=== PATIENT | male | born 1965 | race Caucasian/White ===

== ENCOUNTER 2020-03-15 10:31 | Inpatient (IN) | payer BC, OTHER ==
[2020-03-15] VITALS (15 sets, daily range): BP systolic 107–155; BP diastolic 60–95
[~2020-03-15] VITALS: Ht 172.7 cm; Wt 85.2 kg
[2020-03-15] MEDS ORDERED: MIDAZOLAM 100mg/100ml NS BAG 100 ML IV PRN (10:45)
[2020-03-15 11:40] LABS: BASE EXCESS ABG -3 mmol/L (-3-3); HCO3 ABG 22 mmol/L (21-28); PCO2 ABG 38 mmHg (35-46); PO2 ABG 85 mmHg (75-108); SAT O2 ABG 97 % (92-99)
--- NOTE | 2020-03-15 11:56 | PDOC ---
PULMONARY PROGRESS NOTES DATE: 03/15/20 TIME: 11:51 Vitals Vital Signs Date Time Temp Pulse Resp B/P (MAP) Pulse Ox O2 Delivery O2 Flow Rate FiO2 03/15/20 11:08 20 Ventilator Impression . Patient seen, and examined, full consult to be dictated Chest x-ray reviewed acute pulmonary edema versus atypical pneumonia Patient had a a MPI treadmill and 2009, negative at that time Will need cardiology evaluation Discussed with RN Continue current support for respiratory failure, ANDER CASTRO MD Mar 15, 2020 11:56
--- NOTE | 2020-03-15 12:21 | NUR ---
1018 Admit from [facility] vent dependent, transported per EMS to ICU 114 w PUI. Reported by Tamanna SERRANO in report that covid swab completed there prior to transfer to [facility]. History of COPD/bronchitis as well as meth and lowell use. Urine to lab for drug screen on admission. Informed patient had ^ SOA several days getting worse past 48 H w presentation to [place] [facility] . Sequence of non rebreather to BiPap w/o success in rise of PO2 therefore ended up intubated/ transferred. Sedation required and has been successful in maintaining line placement as well as vent control. Dr Byrne consulted.
[2020-03-15 14:56] LABS: FIO2 ABG 40% VENT
[2020-03-15] MEDS: PROPOFOL 100 ML IV PRN ×2 (15:52→21:17)
[2020-03-15] MEDS ORDERED: PIP/TAZO PER PHARMACY MC PRN (18:30)
[2020-03-15] MEDS ORDERED: VANCOMYCIN 2 GM in IV NORMAL SALINE 500ML BAG 500 ML IV ONE (20:00)
[2020-03-15] MEDS ORDERED: PIPERACILLIN/TAZOBACTAM 3.375 GM in IV NORMAL SALINE 50ML 50 ML IV ONE (20:00)
[2020-03-15] MEDS: ENOXAPARIN 40 MG/0.4 ML SYRINGE. SQ SCH (21:17)
[2020-03-15 21:31] LABS: GFR 77.3
[2020-03-15] MEDS: VANCOMYCIN 1.25 GM in IV NORMAL SALINE 250ML 250 ML IV SCH (22:53)
[2020-03-16] VITALS (22 sets, daily range): BP systolic 103–180; BP diastolic 61–91
[2020-03-16] MEDS: VANCOMYCIN PER PHARMACY MC PRN ×2 (00:50→10:36)
--- NOTE | 2020-03-16 00:50 | NUR ---
Pharmacy Vancomycin Dosing Note S:Consulted to monitor and dose vancomycin started 03/15/20. O:SHANON TUCKER is a 55 year old M with Sepsis Pneumonia . Height: 5 feet, 8 inches Weight: 86.7 kg [place] Body Weight: 68.40 Adjusted Body Weight: 75.72 Dosing Weight: Actual Other Antibiotics: ZOSYN 3.375 GM Q6H LABS: Last BUN: 17 Last Creatinine: 1 Creatinine Clearance: 80 mL/min Last WBC: 13.3 Last Procalcitonin: Tmax (past 24 hours): Microbiology: I/O: Drug Levels: Last level: on at Last dose given 03/15/20 at 2200 Vancomycin Dosing: Loading Dose: 2000 mg x1 Dosing Weight: Actual Target Trough: 15-20 A: Based on: WT AND CRCL P: 1. Begin Vancomycin 1250 mg IV q12h 2. Follow up Trough level on 03/16/20 at 2130 3. Pharmacy will continue to monitor, follow and adjust therapy as needed. JAJA MAYS RPH, 03/16/20 0050 Signed: 03/16/20 at 0050 by JAJA MAYS RPH PHA
[2020-03-16] MEDS: PROPOFOL 100 ML IV PRN ×2 (01:03→05:08)
[2020-03-16] MEDS: PIPERACILLIN/TAZOBACTAM 3.375 GM in IV NORMAL SALINE 50ML 50 ML IV SCH ×5 (01:06→23:38)
[2020-03-16 05:59] LABS: HEMATOCRIT 39.2 % (39.0-53.0); HEMOGLOBIN 12.7 g/dL (13.0-17.5); RED BLOOD COUNT 4.55 x10^6/uL (4.30-5.70); RED CELL DISTRIBUTION WIDTH 14.2 % (11.5-14.5)
[2020-03-16 06:59] LABS: ALBUMIN 2.7 g/dL (3.4-5.0); ALBUMIN/GLOBULIN RATIO 0.9 (1.0-1.7); C-REACTIVE PROTEIN 6.7 mg/L (0-3.3); CALCIUM 8.7 mg/dL (8.5-10.1); CREATININE 1.1 mg/dL (0.7-1.3); GFR 69.2; TOTAL BILIRUBIN 0.3 mg/dL (0.2-1.0); TOTAL PROTEIN 5.6 g/dL (6.4-8.2)
--- NOTE | 2020-03-16 08:38 | RAD ---
Examination: CHEST AP ONLY History: Reason: CHEST XRAY FOR INTUBATION 114 / Comparison: 03/15/2020 AP view of the chest. Findings: AP portable upright frontal view of the chest was obtained. Enteric tube is present well within in the stomach. The distal extent is not included on this exam. Tracheal tube terminates 3 cm from the geronimo. The cardiomediastinal silhouette is normal. No dense consolidation. Left lateral basilar small nodular density is present but not seen on the prior exams. This may represent a small focus of atelectasis or other opacity. There is no pneumothorax. No pleural effusion is appreciated. No acute bone abnormality. IMPRESSION: Minimal left lateral basilar atelectasis suggested in the interval. Tracheal tube in place. Electronically signed by: Clinton Newman MD (03/16/2020 8:35 AM) [id number]
[2020-03-16 09:01] LABS: BASE EXCESS ABG 4 mmol/L (-3-3); HCO3 ABG 26 mmol/L (21-28); PCO2 ABG 32 mmHg (35-46); PO2 ABG 82 mmHg (75-108); SAT O2 ABG 97 % (92-99)
--- NOTE | 2020-03-16 09:32 | PN ---
DATE: 03/16/2020 SUBJECTIVE: The patient continued to be sedated, intubated and mechanically ventilated. He is maintaining his oxygen saturation at 93% on FiO2 of 40%. PHYSICAL EXAMINATION: GENERAL: When I examined him, he looked well and was clearly in no apparent respiratory distress. No pallor, jaundice, cyanosis or thyromegaly. No jugular venous distention. No lower limb edema. VITAL SIGNS: His heart rate was 92, blood pressure was 123/65, temperature was 98.4, respiratory rate 22, and oxygen saturation was 93% on FiO2 of 40%. HEAD, EYES, EARS, NOSE AND THROAT: Showed normocephalic, atraumatic. He has orotracheal and orogastric tube in place. NECK: Supple. HEART: Showed normal first and second heart sounds. No gallop, rub or murmur. CHEST: Clear to auscultation. No crepitation or rhonchi. ABDOMEN: Distended, soft, nontender. NEUROLOGIC: He is sedated, does open his eyes and moves all extremities spontaneously. His lab work this morning showed a white cell count of 11,000, hemoglobin 12.7, hematocrit 39, MCV 86 and platelet count of 329,000. His D-dimer has risen to 1.95. His chemistry showed a serum sodium 143, potassium 4, chloride 106, bicarbonate 28, anion gap of 9, BUN 23, creatinine 1.1, estimated GFR was 69 mL per minute. His glucose 111, calcium was 8.7. Total bilirubin, AST, ALT, alkaline phosphatase were normal. C-reactive protein was 6.7. Total protein 5.6, albumin was 2.7. ASSESSMENT: This is a 55-year-old male patient who was admitted with wxlsh-jg-ubqehwz hypoxic hypercapnic respiratory failure. He is a person under investigation, he was swabbed for coronavirus at [facility], the results of which is still pending; however, his influenza A and B were negative. He is known to have chronic obstructive pulmonary disease. He also is a current everyday smoker. He also abuses cocaine and amphetamine. PLAN: Obviously to continue with IV antibiotic. Continue with DVT prophylaxis. Given the fact that prednisone cause headache, I will start him on dexamethasone 6 mg IV daily and we will follow him on a daily basis. EDY HOFFMAN MD DR: Parrish JOB#: [id number] / [id number]
[2020-03-16 09:36] LABS: FIO2 ABG 40
--- NOTE | 2020-03-16 09:43 | HP ---
ADMIT DATE: HISTORY OF PRESENT ILLNESS: The patient is a 55-year-old male patient who was brought to the Emergency Room by his as he was in significant respiratory distress, speaking in 1-2 word sentence with complaints of chest pain and shortness of breath for the past 2 days, holding his inhaler with associated cough and sore throat. The patient was found to be cyanotic with significant retraction and accessory muscle usage. He was placed on a nonrebreather mask initially and transferred to isolation room and he was started on BiPAP; however, his oxygen saturation has risen to 90% on nonrebreather mask. He stated that prednisone gave him headache, but no angioedema or anaphylaxis. Denies any recent hospitalization, works at [employer]. His medications were reviewed and was apparently prescribed azithromycin on 03/04 for COPD exacerbation. While in the Emergency Room, apparently, the patient become more distressed with increased work of breathing and significant tachypnea, not improving with BiPAP and therefore using rapid sequence intubation, he was intubated and started on mechanical ventilation. Chest tube placement was confirmed by clinical exam as well as chest x-ray, which showed that the endotracheal tube and NG tube are in proper place and in satisfactory position and the lung field showed increased markings in the lung castaneda, which could reflect edema and/or atypical pneumonia. The patient was subsequently transferred to [facility] ICU as the patient under investigation for possible coronavirus infection together with zpwyh-wi-[id number] hypoxic hypercapnic respiratory failure. He was treated with IV vancomycin, started on propofol for sedation and was transferred to [facility] for further evaluation and treatment to continue mechanical ventilation. PAST MEDICAL HISTORY: Significant for COPD, tobacco abuse and cocaine, amphetamine and methamphetamine use. PAST SURGICAL HISTORY: Noncontributory. SOCIAL HISTORY: , lives with his , continued to smoke and abuse cocaine and methamphetamine. FAMILY HISTORY: Unobtainable. REVIEW OF SYSTEMS: Unobtainable. ALLERGIES: HE IS ALLERGIC APPARENTLY TO PREDNISONE, BUT HE STATED IT CAUSED HEADACHE. NO ANGIOEDEMA OR SKIN RASH. MEDICATIONS: He is normally on following medications: He was on azithromycin 250 mg once a day for 5 days, ibuprofen 800 mg 3 times a day, hydrocodone/APAP 5/325 one tablet every 6 hours as needed. PHYSICAL EXAMINATION: GENERAL: On arrival to the Emergency Room, the patient was extremely tachypneic, tachycardic. There was no pallor, jaundice, cyanosis or thyromegaly. No jugular venous distention. No lower limb edema. VITAL SIGNS: His heart rate on arrival was 113, blood pressure was 170/97, temperature was 98, respiratory rate was 15 and oxygen saturation was 80% on room air, but increased to 90% on nonrebreather mask and improved further to 99% on BiPAP machine. HEAD, EYES, EARS, NOSE AND THROAT: Showed normocephalic, atraumatic. NECK: Supple. HEART: Showed normal first and second heart sounds. No gallop, rub or murmur. He has obviously sinus tachycardia. CHEST: Showed central trachea. Bilateral breath sounds equal with tight breath sounds, expiratory wheezes. He has sternal and subcostal retractions and tachypnea in the 40s, unable to finish a sentence. His oxygen saturation has improved to 100% on nonrebreather mask. ABDOMEN: Distended, soft, nontender. NEUROLOGIC: He was alert, awake with normal motor and sensory function. LABORATORY DATA: His lab work on arrival showed that his white cell count was 13,300; hemoglobin 14.6; hematocrit was 46; MCV 90 and platelet count of 391,000. His serum sodium was 141, potassium 4, chloride 104, bicarbonate 24, anion gap of 13, BUN 17, creatinine 1.4, estimated GFR was 52 mL per minute. His glucose was 195, lactic acid was 55.5, calcium was 9.4, magnesium was 2.5. Total bilirubin, AST, ALT were normal. Alkaline phosphatase slightly elevated. CK was 115. Troponin was less than 0.017. Beta-natriuretic peptide was 60. Total protein 7.4, albumin was 3.7. His D-dimer was only 0.46 and his initial blood gases showed a pH of 7.28, pCO2 of 56, pO2 of 124, bicarbonate 27, and oxygen saturation was 98% on FiO2 of 40%. ASSESSMENT AND PLAN: In summary, this is a 55-year-old male patient who came to the Emergency Room with vpwmx-[id number] hypoxic hypercapnic respiratory failure, chronic obstructive pulmonary disease exacerbation. He has also polysubstance abuse including cocaine and amphetamine. His chest x-ray showed increased interstitial changes from edema or atypical pneumonia. Once he was intubated, he has another chest x-ray, which showed that endotracheal tube in satisfactory position, continued presence of mild hazy infiltrate or edema bilaterally and detailed chest x-ray showed endotracheal tube and NG tube appears to be in satisfactory position, poor inspiratory effort, but continued presence of increased markings in the lung castaneda, which could reflect edema or atypical pneumonia. The patient was admitted to [facility] ICU and was continued on mechanical ventilation. We did start him on IV antibiotic in the form of vancomycin and piperacillin. Continued with deep venous thrombosis prophylaxis. It was mentioned that he was allergic to PREDNISONE and therefore, we did not start him on that and I did consult the chemistry faculty member as well as Infectious Disease as he is a person under investigation. Apparently, he was swabbed for coronavirus at [place]; however, the result of that is still pending; however, his influenza A and B were both negative. EDY HOFFMAN MD DR: THOMAS/jaime JOB#: [id number] / [id number]
--- NOTE | 2020-03-16 10:01 | PDOC ---
Infectious Disease Note Vital Sign Vital Signs Vital Signs Date Time Temp Pulse Resp B/P (MAP) Pulse Ox O2 Delivery O2 Flow Rate FiO2 03/16/20 07:00 92 22 123/65 (84) 93 Ventilator 03/16/20 04:00 98.4 98.4 Labs Lab Laboratory Tests Test 03/15/20 11:24 03/15/20 21:10 03/16/20 03:10 03/16/20 09:00 O2 Saturation 97 % (92-99) 97 % (92-99) Arterial Blood pH 7.38 (7.35-7.45) 7.52 (7.35-7.45) Arterial Blood pCO2 at Patient Temp 38 mmHg (35-46) 32 mmHg (35-46) Arterial Blood pO2 at Patient Temp 85 mmHg (75-108) 82 mmHg (75-108) Arterial Blood HCO3 22 mmol/L (21-28) 26 mmol/L (21-28) Arterial Blood Base Excess -3 mmol/L (-3-3) 4 mmol/L (-3-3) FiO2 40% vent 40 Creatinine 1.0 mg/dL (0.7-1.3) 1.1 mg/dL (0.7-1.3) Estimated GFR (Cockcroft-Gault) 77.3 69.2 White Blood Count 11.0 x10^3/uL (4.0-11.0) Red Blood Count 4.55 x10^6/uL (4.30-5.70) Hemoglobin 12.7 g/dL (13.0-17.5) Hematocrit 39.2 % (39.0-53.0) Mean Corpuscular Volume 86 fL (79-100) Mean Corpuscular Hemoglobin 28 pg (25-35) Mean Corpuscular Hemoglobin Concent 33 g/dL (31-37) Red Cell Distribution Width 14.2 % (11.5-14.5) Platelet Count 329 x10^3/uL (140-400) D-Dimer (Annette) 1.95 ug/mlFEU (0.00-0.50) Sodium Level 143 mmol/L (136-145) Potassium Level 4.0 mmol/L (3.5-5.1) Chloride Level 106 mmol/L (98-107) Carbon Dioxide Level 28 mmol/L (21-32) Anion Gap 9 (6-14) Blood Urea Nitrogen 23 mg/dL (8-26) BUN/Creatinine Ratio 21 (6-20) Glucose Level 111 mg/dL (70-99) Calcium Level 8.7 mg/dL (8.5-10.1) Total Bilirubin 0.3 mg/dL (0.2-1.0) Aspartate Amino Transf (AST/SGOT) 19 U/L (15-37) Alanine Aminotransferase (ALT/SGPT) 35 U/L (16-63) Alkaline Phosphatase 114 U/L (46-116) C-Reactive Protein, Quantitative 6.7 mg/L (0-3.3) Total Protein 5.6 g/dL (6.4-8.2) Albumin 2.7 g/dL (3.4-5.0) Albumin/Globulin Ratio 0.9 (1.0-1.7) Objective Assessment pt seen, consult dictated Plan Plan of Care / FRANCO ARELLANO MD Mar 16, 2020 10:01
--- NOTE | 2020-03-16 10:23 | CONS ---
DATE OF CONSULTATION: 03/16/2020 REQUESTING PHYSICIAN: Vincent Casarez MD REASON FOR CONSULTATION: Respiratory failure and COVID pending. HISTORY OF PRESENT ILLNESS: This is a 55-year-old gentleman with history of drug use, who presented to the Emergency Room with shortness of breath and found to be hypoxic. Apparently, they tried BiPAP and then they intubated and transferred here. The patient's chest x-ray is unremarkable. The patient has not had any fever. The patient has no nausea, vomiting, diarrhea and he does wake up and appears to follow command on the ventilator right now. COVID-19 is pending. The patient's white count was 11,000 and the patient is put on Zosyn and vancomycin. PAST MEDICAL HISTORY: Positive for COPD and drug use. SOCIAL HISTORY: Positive for drug use. Positive for smoking. No alcohol use. ALLERGIES: LISTED ALLERGIC TO PREDNISONE. REVIEW OF SYSTEMS: Unable to obtain other than what I mentioned in HPI through the nursing, no nausea, vomiting, diarrhea or fever noted. PHYSICAL EXAMINATION: GENERAL: Arousable gentleman on a ventilator, not in distress. VITAL SIGNS: Temperature 98.4, pulse 90, respirations 22, blood pressure 113/62. HEENT: Both pupils are round and reacting. Mouth orally intubated. Mouth cannot be visualized. NECK: Supple, no JVP, no lymphadenopathy. LUNGS: Clear. HEART: S1, S2 regular. ABDOMEN: Soft, nontender, no organomegaly. EXTREMITIES: No edema or cyanosis. SKIN: Unremarkable. NEUROLOGIC: The patient does appear to follow command as well as he moves all the extremities. LABORATORY DATA: White count is 11,000; hemoglobin 12.1; platelets are normal. BUN and creatinine is normal. His liver functions are normal. CRP is 6.7, albumin is 2.7. COVID-19 is pending. Chest x-ray is not showing any acute infiltrate. IMPRESSION: 1. Hypoxic respiratory failure. 2. Chronic obstructive pulmonary disease. 3. COVID-19 pending. 4. Leukocytosis. 5. History of substance abuse. RECOMMENDATIONS: Continue antibiotics for the time being, supportive care. Wait for the cultures. Await for the COVID-19 as well as hopefully may be able to extubate pretty soon. Thank you very much, Dr. Casarez, for giving me the opportunity to participate in this patient's care. FRANCO ARELLANO MD DR: JOHN/jaime JOB#: [id number] / [id number]
[2020-03-16] MEDS: VANCOMYCIN 1.25 GM in IV NORMAL SALINE 250ML 250 ML IV SCH ×2 (10:47→21:43)
[2020-03-16] MEDS: DEXAMETHASONE SOD PHOS 4 MG/ML VIAL IVP SCH (10:53)
[2020-03-16] MEDS ORDERED: IV NORMAL SALINE 500ML BAG 500 ML IV PRN (11:53)
[2020-03-16] MEDS ORDERED: DEXMEDETOMIDINE 400 MCG in IV NORMAL SALINE 100ML 96 ML IV PRN (12:00)
--- NOTE | 2020-03-16 12:49 | PDOC ---
PULMONARY PROGRESS NOTES DATE: 03/16/20 TIME: 12:44 Subjective Patient remains on current ventilatory support, sedated Nursing reports agitation with reducing sedation Afebrile No other concerns from nursing at this time Vitals Vital Signs Date Time Temp Pulse Resp B/P (MAP) Pulse Ox O2 Delivery O2 Flow Rate FiO2 03/16/20 12:09 98 Ventilator 03/16/20 11:00 90 22 110/77 (88) 03/16/20 07:00 98.9 98.9 Comments Patient seen during , visual exam performed Regular rate and rhythm Intubated/sedated No obvious rash or edema Labs Laboratory Tests Test 03/15/20 11:24 03/15/20 21:10 03/16/20 03:10 03/16/20 09:00 O2 Saturation 97 % (92-99) 97 % (92-99) Arterial Blood pH 7.38 (7.35-7.45) 7.52 (7.35-7.45) Arterial Blood pCO2 at Patient Temp 38 mmHg (35-46) 32 mmHg (35-46) Arterial Blood pO2 at Patient Temp 85 mmHg (75-108) 82 mmHg (75-108) Arterial Blood HCO3 22 mmol/L (21-28) 26 mmol/L (21-28) Arterial Blood Base Excess -3 mmol/L (-3-3) 4 mmol/L (-3-3) FiO2 40% vent 40 Creatinine 1.0 mg/dL (0.7-1.3) 1.1 mg/dL (0.7-1.3) Estimated GFR (Cockcroft-Gault) 77.3 69.2 White Blood Count 11.0 x10^3/uL (4.0-11.0) Red Blood Count 4.55 x10^6/uL (4.30-5.70) Hemoglobin 12.7 g/dL (13.0-17.5) Hematocrit 39.2 % (39.0-53.0) Mean Corpuscular Volume 86 fL (79-100) Mean Corpuscular Hemoglobin 28 pg (25-35) Mean Corpuscular Hemoglobin Concent 33 g/dL (31-37) Red Cell Distribution Width 14.2 % (11.5-14.5) Platelet Count 329 x10^3/uL (140-400) D-Dimer (Annette) 1.95 ug/mlFEU (0.00-0.50) Sodium Level 143 mmol/L (136-145) Potassium Level 4.0 mmol/L (3.5-5.1) Chloride Level 106 mmol/L (98-107) Carbon Dioxide Level 28 mmol/L (21-32) Anion Gap 9 (6-14) Blood Urea Nitrogen 23 mg/dL (8-26) BUN/Creatinine Ratio 21 (6-20) Glucose Level 111 mg/dL (70-99) Calcium Level 8.7 mg/dL (8.5-10.1) Total Bilirubin 0.3 mg/dL (0.2-1.0) Aspartate Amino Transf (AST/SGOT) 19 U/L (15-37) Alanine Aminotransferase (ALT/SGPT) 35 U/L (16-63) Alkaline Phosphatase 114 U/L (46-116) C-Reactive Protein, Quantitative 6.7 mg/L (0-3.3) Total Protein 5.6 g/dL (6.4-8.2) Albumin 2.7 g/dL (3.4-5.0) Albumin/Globulin Ratio 0.9 (1.0-1.7) Laboratory Tests Test 03/15/20 21:10 03/16/20 03:10 03/16/20 09:00 Creatinine 1.0 mg/dL (0.7-1.3) 1.1 mg/dL (0.7-1.3) Estimated GFR (Cockcroft-Gault) 77.3 69.2 White Blood Count 11.0 x10^3/uL (4.0-11.0) Red Blood Count 4.55 x10^6/uL (4.30-5.70) Hemoglobin 12.7 g/dL (13.0-17.5) Hematocrit 39.2 % (39.0-53.0) Mean Corpuscular Volume 86 fL (79-100) Mean Corpuscular Hemoglobin 28 pg (25-35) Mean Corpuscular Hemoglobin Concent 33 g/dL (31-37) Red Cell Distribution Width 14.2 % (11.5-14.5) Platelet Count 329 x10^3/uL (140-400) D-Dimer (Annette) 1.95 ug/mlFEU (0.00-0.50) Sodium Level 143 mmol/L (136-145) Potassium Level 4.0 mmol/L (3.5-5.1) Chloride Level 106 mmol/L (98-107) Carbon Dioxide Level 28 mmol/L (21-32) Anion Gap 9 (6-14) Blood Urea Nitrogen 23 mg/dL (8-26) BUN/Creatinine Ratio 21 (6-20) Glucose Level 111 mg/dL (70-99) Calcium Level 8.7 mg/dL (8.5-10.1) Total Bilirubin 0.3 mg/dL (0.2-1.0) Aspartate Amino Transf (AST/SGOT) 19 U/L (15-37) Alanine Aminotransferase (ALT/SGPT) 35 U/L (16-63) Alkaline Phosphatase 114 U/L (46-116) C-Reactive Protein, Quantitative 6.7 mg/L (0-3.3) Total Protein 5.6 g/dL (6.4-8.2) Albumin 2.7 g/dL (3.4-5.0) Albumin/Globulin Ratio 0.9 (1.0-1.7) O2 Saturation 97 % (92-99) Arterial Blood pH 7.52 (7.35-7.45) Arterial Blood pCO2 at Patient Temp 32 mmHg (35-46) Arterial Blood pO2 at Patient Temp 82 mmHg (75-108) Arterial Blood HCO3 26 mmol/L (21-28) Arterial Blood Base Excess 4 mmol/L (-3-3) FiO2 40 Comments CXR IMPRESSION: Minimal left lateral basilar atelectasis suggested in the interval. Tracheal tube in place. Impression . Acute hypoxic respiratory failure Acute pulmonary edema versus atypical pneumonia COPD with acute exacerbation Leukocytosis Suspected COVID-19 Polysubstance abuse Plan . Continue current ventilatory support, FiO2 40% and a PEEP of 5 Plan for sedation vacation, with CPAP trial once awake Follow ABG and chest x-ray, reduce respiratory rate to 16 Precedex if needed, monitor for withdrawal Continue IV steroids Follow cardiology recommendations for cardiac work-up Await COVID-19 results, continue isolation precautions, Follow infectious disease recommendations for empiric antibiotic therapy, follow cultures DVT/GI prophylaxis Discussed with RN and RT Critical care time [id number] AM ANDER CASTRO MD Mar 16, 2020 12:49
[2020-03-16 13:01] LABS: PCO2 ABG 46 mmHg (35-46); PO2 ABG 77 mmHg (75-108)
[2020-03-16 13:02] LABS: BASE EXCESS ABG 5 mmol/L (-3-3); FIO2 ABG 40; HCO3 ABG 30 mmol/L (21-28); SAT O2 ABG 95 % (92-99)
--- NOTE | 2020-03-16 19:42 | NUR ---
CPAP trial ,tolerated well...TV 450-537, RR 16-20 w.o overt signs of distress.sats maintained at > 95. Orders to extubate after ABG report. O2 at 4 titrated to 3 at shift change Asist to BRx2 - large soft mushy stools. Questioned on drug use earlier but denied then freely volunteered info on use of street drugs to control pain because of earlier addiction from scripts . Attempted to kick but unable to afford and street drugs are cheaper. Last known self Rx was day of admission. reports to taking Percocet + one other. Night nurse communicated conversation to Dr Chandler. Tolerated chair activity as well as BRP. Steady on feet w all activity. Able to yanni liquids to regular diet.and advancement Covid results still pending
[2020-03-16] MEDS: ENOXAPARIN 40 MG/0.4 ML SYRINGE. SQ SCH (20:01)
[2020-03-16] MEDS: oxyCODONE/APAP 5/325 1 TAB TABLET PO PRN (20:02)
--- NOTE | 2020-03-16 21:00 | NUR ---
Dr Casarez notified this shift of pts reported "Percocet bought on the street" use, as stated by pt. Pt also reported chronic sciatica pain, which he "had been taking prescribed medications for until they were changed and became too expensive." The pts also reported to this RN on the phone about pts chronic pain "which needs surgery to fix." Received order from Dr. Casarez for PRN Percocet 5/325 mg Q4hrs for pain. Order entered into system. Will pass on and continue to monitor.
[2020-03-16 21:35] LABS: VANC TR 12.2 mcg/mL (10.0-20.0)
[2020-03-16] MEDS: FAMOTIDINE 20 MG/2 ML VIAL IVP SCH (21:41)
[2020-03-17] VITALS (20 sets, daily range): BP systolic 127–198; BP diastolic 72–105
[2020-03-17] MEDS: VANCOMYCIN PER PHARMACY MC PRN (00:23)
--- NOTE | 2020-03-17 00:24 | NUR ---
Pharmacy Vancomycin Dosing Note S:Consulted to monitor and dose vancomycin started 03/15/20. O:SHANON TUCKER is a 55 year old M with Sepsis Pneumonia . Height: 5 feet, 8 inches Weight: 87.0 kg [place] Body Weight: 68.40 Adjusted Body Weight: 75.84 Dosing Weight: Actual Other Antibiotics: ZOSYN 3.375 GM Q6H LABS: Last BUN: 23 Last Creatinine: 1.1 Creatinine Clearance: 80 mL/min Last WBC: 11 Last Procalcitonin: Tmax (past 24 hours): 98.4 Microbiology: BLOOD CX [facility] (03/15): NGTD I/O: 272/2450 Drug Levels: Last Trough level: 12.2 on 03/16/20 at 2130 Last dose given 03/15/20 at 2253 Vancomycin Dosing: Loading Dose: 2000 mg x1 Dosing Weight: Actual Target Trough: 15-20 A: Based on: TROUGH P: 1. Begin Vancomycin 1500 mg IV q12h 2. Follow up Trough level on 03/18/20 at 2130 3. Pharmacy will continue to monitor, follow and adjust therapy as needed. JAJA MAYS RPH, 03/17/20 0024 Signed: 03/17/20 at 0024 by JAJA MAYS RPH PHA
[2020-03-17] MEDS: PIPERACILLIN/TAZOBACTAM 3.375 GM in IV NORMAL SALINE 50ML 50 ML IV SCH ×3 (06:23→17:37)
[2020-03-17] MEDS: oxyCODONE/APAP 5/325 1 TAB TABLET PO PRN ×3 (07:54→22:16)
[2020-03-17] MEDS: DEXAMETHASONE SOD PHOS 4 MG/ML VIAL IVP SCH (07:54)
[2020-03-17] MEDS: FAMOTIDINE 20 MG/2 ML VIAL IVP SCH ×2 (07:54→22:15)
--- NOTE | 2020-03-17 08:41 | PDOC ---
PULMONARY PROGRESS NOTES DATE: 03/17/20 TIME: 08:40 Subjective Patient extubated 03/16 Not more short of air no chest pain no pressure Was smoking up until he arrived Vitals Vital Signs Date Time Temp Pulse Resp B/P (MAP) Pulse Ox O2 Delivery O2 Flow Rate FiO2 03/17/20 06:00 87 19 155/88 (110) 99 Nasal Cannula 2.0 03/17/20 04:00 98.2 98.2 General: Alert Lungs: Clear Cardiovascular: S1, S2 Abdomen: Soft Neuro Exam: Alert Extremities: No Edema Skin: Warm Labs Laboratory Tests Test 03/15/20 11:24 03/15/20 21:10 03/16/20 03:10 03/16/20 09:00 O2 Saturation 97 % (92-99) 97 % (92-99) Arterial Blood pH 7.38 (7.35-7.45) 7.52 (7.35-7.45) Arterial Blood pCO2 at Patient Temp 38 mmHg (35-46) 32 mmHg (35-46) Arterial Blood pO2 at Patient Temp 85 mmHg (75-108) 82 mmHg (75-108) Arterial Blood HCO3 22 mmol/L (21-28) 26 mmol/L (21-28) Arterial Blood Base Excess -3 mmol/L (-3-3) 4 mmol/L (-3-3) FiO2 40% vent 40 Creatinine 1.0 mg/dL (0.7-1.3) 1.1 mg/dL (0.7-1.3) Estimated GFR (Cockcroft-Gault) 77.3 69.2 White Blood Count 11.0 x10^3/uL (4.0-11.0) Red Blood Count 4.55 x10^6/uL (4.30-5.70) Hemoglobin 12.7 g/dL (13.0-17.5) Hematocrit 39.2 % (39.0-53.0) Mean Corpuscular Volume 86 fL (79-100) Mean Corpuscular Hemoglobin 28 pg (25-35) Mean Corpuscular Hemoglobin Concent 33 g/dL (31-37) Red Cell Distribution Width 14.2 % (11.5-14.5) Platelet Count 329 x10^3/uL (140-400) D-Dimer (Annette) 1.95 ug/mlFEU (0.00-0.50) Sodium Level 143 mmol/L (136-145) Potassium Level 4.0 mmol/L (3.5-5.1) Chloride Level 106 mmol/L (98-107) Carbon Dioxide Level 28 mmol/L (21-32) Anion Gap 9 (6-14) Blood Urea Nitrogen 23 mg/dL (8-26) BUN/Creatinine Ratio 21 (6-20) Glucose Level 111 mg/dL (70-99) Calcium Level 8.7 mg/dL (8.5-10.1) Total Bilirubin 0.3 mg/dL (0.2-1.0) Aspartate Amino Transf (AST/SGOT) 19 U/L (15-37) Alanine Aminotransferase (ALT/SGPT) 35 U/L (16-63) Alkaline Phosphatase 114 U/L (46-116) C-Reactive Protein, Quantitative 6.7 mg/L (0-3.3) Total Protein 5.6 g/dL (6.4-8.2) Albumin 2.7 g/dL (3.4-5.0) Albumin/Globulin Ratio 0.9 (1.0-1.7) Test 03/16/20 12:55 03/16/20 21:00 O2 Saturation 95 % (92-99) Arterial Blood pH 7.43 (7.35-7.45) Arterial Blood pCO2 at Patient Temp 46 mmHg (35-46) Arterial Blood pO2 at Patient Temp 77 mmHg (75-108) Arterial Blood HCO3 30 mmol/L (21-28) Arterial Blood Base Excess 5 mmol/L (-3-3) FiO2 40 Vancomycin Level Trough 12.2 mcg/mL (10.0-20.0) Vancomycin Last Dose Date 03/16/20 Vancomycin Last Dose Time 1000 Laboratory Tests Test 03/16/20 09:00 03/16/20 12:55 03/16/20 21:00 O2 Saturation 97 % (92-99) 95 % (92-99) Arterial Blood pH 7.52 (7.35-7.45) 7.43 (7.35-7.45) Arterial Blood pCO2 at Patient Temp 32 mmHg (35-46) 46 mmHg (35-46) Arterial Blood pO2 at Patient Temp 82 mmHg (75-108) 77 mmHg (75-108) Arterial Blood HCO3 26 mmol/L (21-28) 30 mmol/L (21-28) Arterial Blood Base Excess 4 mmol/L (-3-3) 5 mmol/L (-3-3) FiO2 40 40 Vancomycin Level Trough 12.2 mcg/mL (10.0-20.0) Vancomycin Last Dose Date 03/16/20 Vancomycin Last Dose Time 1000 Comments CXR IMPRESSION: Minimal left lateral basilar atelectasis suggested in the interval. Tracheal tube in place. Impression . Acute hypoxic respiratory failure Acute pulmonary edema versus atypical pneumonia COPD with acute exacerbation Leukocytosis COVID-19 negative Polysubstance abuse Plan . Did well yesterday on trial extubated Transfer out of the ICU Patient instructed on the importance of discontinue tobacco use Continue IV steroids Follow cardiology recommendations for cardiac work-up Antibiotics per ID DVT/GI prophylaxis ANDER CASTRO MD Mar 17, 2020 08:40
[2020-03-17] MEDS: VANCOMYCIN 1.5 GM in IV NORMAL SALINE 500ML BAG 500 ML IV SCH ×2 (09:55→22:24)
[2020-03-17 09:59] LABS: HEMOGLOBIN 12.9 g/dL (13.0-17.5); RED BLOOD COUNT 4.66 x10^6/uL (4.30-5.70); RED CELL DISTRIBUTION WIDTH 14.4 % (11.5-14.5); WHITE BLOOD COUNT 11.2 x10^3/uL (4.0-11.0)
--- NOTE | 2020-03-17 10:05 | PN ---
DATE: 03/17/2020 SUBJECTIVE: The patient is resting, slightly propped up in bed, no apparent distress, awake, alert. He was successfully extubated yesterday. On questioning him, he denied any complaint, in particular denied chest pain or shortness of breath. PHYSICAL EXAMINATION: GENERAL: When I examined him, he looked well and was clearly in no apparent respiratory distress, pale. There is no pallor, jaundice, cyanosis or thyromegaly. No jugular venous distention. No lower limb edema. VITAL SIGNS: His heart rate was 92, blood pressure 152/90, temperature was 98.3, respiratory rate was 18 and oxygen saturation was 99% on 2 liters of oxygen. HEAD, EYES, EARS, NOSE AND THROAT: Showed normocephalic, atraumatic. NECK: Supple. HEART: Showed normal first and second heart sounds. No gallop, rub or murmur. CHEST: Clear to auscultation. No crepitation or rhonchi. ABDOMEN: Distended, soft, nontender. NEUROLOGIC: He is awake, alert, responding appropriately. All his cranial nerves are intact. He moves extremities without difficulty. His intake over the last 24 hours was incompletely recorded, output was 3450. LABORATORY DATA: His lab work is still pending at the time of this dictation. ASSESSMENT: 1. Acute on chronic hypoxic hypercapnic respiratory failure. He was intubated and mechanically ventilated. He was successfully extubated. 2. Chronic obstructive pulmonary disease. 3. His influenza A and B were negative; however, his COVID-19 by PCR is still pending at the time of this dictation. 4. Polysubstance abuse including cocaine and amphetamine. 5. Chronic low back pain due to sciatica. PLAN: Obviously to continue with IV antibiotic. Continue with IV steroids. Continue with DVT prophylaxis. The patient seems to be doing well. He can be transferred to the 6th floor; however, if his COVID-19 was negative, then he can be transferred to Med-Surg. EDY HOFFMAN MD DR: THOMAS/jaime JOB#: [id number] / [id number]
[2020-03-17 10:11] LABS: ALBUMIN/GLOBULIN RATIO 0.8 (1.0-1.7); CALCIUM 8.8 mg/dL (8.5-10.1); CREATININE 0.9 mg/dL (0.7-1.3); GFR 87.3; POTASSIUM 3.7 mmol/L (3.5-5.1); TOTAL BILIRUBIN 0.6 mg/dL (0.2-1.0); TOTAL PROTEIN 6.7 g/dL (6.4-8.2)
--- NOTE | 2020-03-17 11:49 | PDOC ---
Infectious Disease Note Subjective: Subjective pt feels better on 2L/NC Denies fever, nausea, vomiting, shortness of breath, diarrhea, abdominal pain, rash Otherwise as above Vital Signs: Vital Signs Vital Signs Date Time Temp Pulse Resp B/P (MAP) Pulse Ox O2 Delivery O2 Flow Rate FiO2 03/17/20 10:00 93 175/95 (121) 94 Nasal Cannula 2.0 03/17/20 08:00 20 03/17/20 07:00 98.3 98.3 Physical Exam: PHYSICAL EXAM GENERAL: Arousable gentleman on a ventilator, not in distress. HEENT: Both pupils are round and reacting. Mouth orally intubated. Mouth cannot be visualized. NECK: Supple, no JVP, no lymphadenopathy. LUNGS: Clear. HEART: S1, S2 regular. ABDOMEN: Soft, nontender, no organomegaly. EXTREMITIES: No edema or cyanosis. SKIN: Unremarkable. NEUROLOGIC: The patient does appear to follow command as well as he moves all the extremities. Medications: Inpatient Meds: Current Medications Medications (Trade) Dose Ordered Sig/Mehdi Start Time Stop Time Status Last Admin Dose Admin Dexamethasone Sodium Phosphate (Decadron) 6 mg DAILY 03/16/20 09:30 03/17/20 07:54 6 MG Dexmedetomidine HCl 400 mcg/ Sodium Chloride 100 ml @ 0 mls/hr CONT PRN 03/16/20 12:00 Enoxaparin Sodium (Lovenox 40mg Syringe) 40 mg Q24H 03/15/20 19:00 03/16/20 20:01 40 MG Famotidine (Pepcid Vial) 20 mg BID 03/16/20 21:00 03/17/20 07:54 20 MG Fentanyl Citrate 30 ml @ 0 mls/hr CONT PRN 03/15/20 10:45 03/16/20 14:03 2.5 MLS/HR Midazolam HCl 100 ml @ 0 mls/hr CONT PRN 03/15/20 10:45 Oxycodone/ Acetaminophen (Percocet 5/325) 1 tab PRN Q4HRS PRN 03/16/20 19:45 03/17/20 07:54 1 TAB Piperacillin Sod/ Tazobactam Sod (Zosyn Per Pharmacy) 1 each PRN DAILY PRN 03/15/20 18:30 Piperacillin Sod/ Tazobactam Sod 3.375 gm/Sodium Chloride 50 ml @ 100 mls/hr Q6HRS 03/16/20 01:00 03/17/20 06:23 100 MLS/HR Propofol 100 ml @ 0 mls/hr CONT PRN 03/15/20 10:45 03/16/20 05:08 26.1 MLS/HR Sodium Chloride 500 ml @ 500 mls/hr 1X PRN PRN 03/16/20 11:53 Vancomycin HCl (Vanco Per Pharmacy) 1 each PRN DAILY PRN 03/15/20 18:30 03/17/20 00:23 1 EACH Vancomycin HCl (Vancomycin Trough Level) 1 each 1X ONCE 03/18/20 21:30 03/18/20 21:31 Vancomycin HCl 1.25 gm/Sodium Chloride 250 ml @ 167 mls/hr Q12H 03/15/20 22:00 03/17/20 01:00 DC 03/16/20 21:43 167 MLS/HR Vancomycin HCl 1.5 gm/Sodium Chloride 500 ml @ 250 mls/hr Q12H 03/17/20 10:00 03/17/20 09:55 250 MLS/HR Vancomycin HCl 2 gm/Sodium Chloride 500 ml @ 250 mls/hr 1X ONCE 03/15/20 20:00 03/15/20 21:59 Cancel Labs: Lab Laboratory Tests Test 03/16/20 12:55 03/16/20 21:00 03/17/20 09:10 O2 Saturation 95 % (92-99) Arterial Blood pH 7.43 (7.35-7.45) Arterial Blood pCO2 at Patient Temp 46 mmHg (35-46) Arterial Blood pO2 at Patient Temp 77 mmHg (75-108) Arterial Blood HCO3 30 mmol/L (21-28) Arterial Blood Base Excess 5 mmol/L (-3-3) FiO2 40 Vancomycin Level Trough 12.2 mcg/mL (10.0-20.0) Vancomycin Last Dose Date 03/16/20 Vancomycin Last Dose Time 1000 White Blood Count 11.2 x10^3/uL (4.0-11.0) Red Blood Count 4.66 x10^6/uL (4.30-5.70) Hemoglobin 12.9 g/dL (13.0-17.5) Hematocrit 41.0 % (39.0-53.0) Mean Corpuscular Volume 88 fL (79-100) Mean Corpuscular Hemoglobin 28 pg (25-35) Mean Corpuscular Hemoglobin Concent 32 g/dL (31-37) Red Cell Distribution Width 14.4 % (11.5-14.5) Platelet Count 281 x10^3/uL (140-400) Sodium Level 144 mmol/L (136-145) Potassium Level 3.7 mmol/L (3.5-5.1) Chloride Level 107 mmol/L (98-107) Carbon Dioxide Level 27 mmol/L (21-32) Anion Gap 10 (6-14) Blood Urea Nitrogen 17 mg/dL (8-26) Creatinine 0.9 mg/dL (0.7-1.3) Estimated GFR (Cockcroft-Gault) 87.3 BUN/Creatinine Ratio 19 (6-20) Glucose Level 113 mg/dL (70-99) Calcium Level 8.8 mg/dL (8.5-10.1) Total Bilirubin 0.6 mg/dL (0.2-1.0) Aspartate Amino Transf (AST/SGOT) 19 U/L (15-37) Alanine Aminotransferase (ALT/SGPT) 31 U/L (16-63) Alkaline Phosphatase 110 U/L (46-116) Total Protein 6.7 g/dL (6.4-8.2) Albumin 3.0 g/dL (3.4-5.0) Albumin/Globulin Ratio 0.8 (1.0-1.7) Objective: Assessment: 1. Hypoxic respiratory failure. 2. Chronic obstructive pulmonary disease. 3. COVID-19 pending. 4. Leukocytosis. 5. History of substance abuse. Plan: Plan of Care Continue IV vancomycin and Zosyn Monitor renal functions closely Adjust dose of vancomycin per pharmacy protocol Await COVID-19 Follow-up cultures and monitor labs Continue supportive care ALEJA ARELLANO MD Mar 17, 2020 11:49
[2020-03-17] MEDS ORDERED: amLODIPine BESYLATE 10 MG TABLET PO ONE (14:30)
--- NOTE | 2020-03-17 14:30 | NUR ---
Dr. Casarez notified elevated BP. Orders received for amlodipine 10mg PO x1 now and then to schedule this daily starting tomorrow. Will continue to monitor.
--- NOTE | 2020-03-17 16:39 | NUR ---
SS following for discharge planning. SS reviewed pt chart and discussed with pt RN. Pt is from home with spouse and is currently requiring oxygen. Pt on IV Vancomycin and IV Zosyn. COVID19 negative. PT/OT recommended home with home healthcare. Pt is CVC downgrade. SS will continue to follow for discharge planning.
--- NOTE | 2020-03-17 17:28 | NUR ---
Pt transferred to room 246. Report called to ZACH Reynaga. Pt does not have any personal belongings with him. Pt transported via wheelchair.
[2020-03-17 17:46] LABS: BARBITURATES NEG (NEG); BENZODIAZEPINES NEG (NEG); CANNABINOIDS NEG (NEG); COCAINE NEG (NEG); METHADONE NEG (NEG); OPIATES NEG (NEG); PHENCYCLIDINE NEG (NEG)
[2020-03-17 17:50] LABS: AMPHETAMINE/METHAMPHETAMINE POS (NEG)
[2020-03-17] MEDS: ENOXAPARIN 40 MG/0.4 ML SYRINGE. SQ SCH (22:15)
[2020-03-18] MEDS: PIPERACILLIN/TAZOBACTAM 3.375 GM in IV NORMAL SALINE 50ML 50 ML IV SCH ×2 (00:10→05:01)
[2020-03-18 03:53] VITALS: BP 163/86
[2020-03-18 05:30] LABS: HEMATOCRIT 39.5 % (39.0-53.0); RED BLOOD COUNT 4.51 x10^6/uL (4.30-5.70); RED CELL DISTRIBUTION WIDTH 13.9 % (11.5-14.5); WHITE BLOOD COUNT 11.2 x10^3/uL (4.0-11.0)
[2020-03-18 05:51] LABS: CALCIUM 8.9 mg/dL (8.5-10.1); CREATININE 0.8 mg/dL (0.7-1.3); POTASSIUM 4.1 mmol/L (3.5-5.1)
[2020-03-18 07:00] VITALS: BP 142/69
--- NOTE | 2020-03-18 08:31 | PDOC ---
PULMONARY PROGRESS NOTES DATE: 03/18/20 TIME: 08:31 Subjective Patient extubated 03/16 Not more short of air no chest pain no pressure Was smoking up until he arrived Vitals Vital Signs Date Time Temp Pulse Resp B/P (MAP) Pulse Ox O2 Delivery O2 Flow Rate FiO2 03/18/20 03:53 98.2 79 16 163/86 (111) 97 Nasal Cannula 2.0 98.2 General: Alert Lungs: Clear Cardiovascular: S1, S2 Abdomen: Soft Neuro Exam: Alert Extremities: No Edema Skin: Warm Labs Laboratory Tests Test 03/16/20 09:00 03/16/20 12:55 03/16/20 21:00 03/17/20 09:10 O2 Saturation 97 % (92-99) 95 % (92-99) Arterial Blood pH 7.52 (7.35-7.45) 7.43 (7.35-7.45) Arterial Blood pCO2 at Patient Temp 32 mmHg (35-46) 46 mmHg (35-46) Arterial Blood pO2 at Patient Temp 82 mmHg (75-108) 77 mmHg (75-108) Arterial Blood HCO3 26 mmol/L (21-28) 30 mmol/L (21-28) Arterial Blood Base Excess 4 mmol/L (-3-3) 5 mmol/L (-3-3) FiO2 40 40 Vancomycin Level Trough 12.2 mcg/mL (10.0-20.0) Vancomycin Last Dose Date 03/16/20 Vancomycin Last Dose Time 1000 White Blood Count 11.2 x10^3/uL (4.0-11.0) Red Blood Count 4.66 x10^6/uL (4.30-5.70) Hemoglobin 12.9 g/dL (13.0-17.5) Hematocrit 41.0 % (39.0-53.0) Mean Corpuscular Volume 88 fL (79-100) Mean Corpuscular Hemoglobin 28 pg (25-35) Mean Corpuscular Hemoglobin Concent 32 g/dL (31-37) Red Cell Distribution Width 14.4 % (11.5-14.5) Platelet Count 281 x10^3/uL (140-400) Sodium Level 144 mmol/L (136-145) Potassium Level 3.7 mmol/L (3.5-5.1) Chloride Level 107 mmol/L (98-107) Carbon Dioxide Level 27 mmol/L (21-32) Anion Gap 10 (6-14) Blood Urea Nitrogen 17 mg/dL (8-26) Creatinine 0.9 mg/dL (0.7-1.3) Estimated GFR (Cockcroft-Gault) 87.3 BUN/Creatinine Ratio 19 (6-20) Glucose Level 113 mg/dL (70-99) Calcium Level 8.8 mg/dL (8.5-10.1) Total Bilirubin 0.6 mg/dL (0.2-1.0) Aspartate Amino Transf (AST/SGOT) 19 U/L (15-37) Alanine Aminotransferase (ALT/SGPT) 31 U/L (16-63) Alkaline Phosphatase 110 U/L (46-116) Total Protein 6.7 g/dL (6.4-8.2) Albumin 3.0 g/dL (3.4-5.0) Albumin/Globulin Ratio 0.8 (1.0-1.7) Test 03/17/20 16:50 03/18/20 04:00 Urine Opiates Screen Neg (NEG) Urine Methadone Screen Neg (NEG) Urine Barbiturates Neg (NEG) Urine Phencyclidine Screen Neg (NEG) Urine Amphetamine/Methamphetamine Pos (NEG) Urine Benzodiazepines Screen Neg (NEG) Urine Cocaine Screen Neg (NEG) Urine Cannabinoids Screen Neg (NEG) Urine Ethyl Alcohol Neg (NEG) White Blood Count 11.2 x10^3/uL (4.0-11.0) Red Blood Count 4.51 x10^6/uL (4.30-5.70) Hemoglobin 13.0 g/dL (13.0-17.5) Hematocrit 39.5 % (39.0-53.0) Mean Corpuscular Volume 88 fL (79-100) Mean Corpuscular Hemoglobin 29 pg (25-35) Mean Corpuscular Hemoglobin Concent 33 g/dL (31-37) Red Cell Distribution Width 13.9 % (11.5-14.5) Platelet Count 280 x10^3/uL (140-400) Sodium Level 143 mmol/L (136-145) Potassium Level 4.1 mmol/L (3.5-5.1) Chloride Level 107 mmol/L (98-107) Carbon Dioxide Level 25 mmol/L (21-32) Anion Gap 11 (6-14) Blood Urea Nitrogen 14 mg/dL (8-26) Creatinine 0.8 mg/dL (0.7-1.3) Estimated GFR (Cockcroft-Gault) 100.0 Glucose Level 92 mg/dL (70-99) Calcium Level 8.9 mg/dL (8.5-10.1) Laboratory Tests Test 03/17/20 09:10 03/17/20 16:50 03/18/20 04:00 White Blood Count 11.2 x10^3/uL (4.0-11.0) 11.2 x10^3/uL (4.0-11.0) Red Blood Count 4.66 x10^6/uL (4.30-5.70) 4.51 x10^6/uL (4.30-5.70) Hemoglobin 12.9 g/dL (13.0-17.5) 13.0 g/dL (13.0-17.5) Hematocrit 41.0 % (39.0-53.0) 39.5 % (39.0-53.0) Mean Corpuscular Volume 88 fL (79-100) 88 fL (79-100) Mean Corpuscular Hemoglobin 28 pg (25-35) 29 pg (25-35) Mean Corpuscular Hemoglobin Concent 32 g/dL (31-37) 33 g/dL (31-37) Red Cell Distribution Width 14.4 % (11.5-14.5) 13.9 % (11.5-14.5) Platelet Count 281 x10^3/uL (140-400) 280 x10^3/uL (140-400) Sodium Level 144 mmol/L (136-145) 143 mmol/L (136-145) Potassium Level 3.7 mmol/L (3.5-5.1) 4.1 mmol/L (3.5-5.1) Chloride Level 107 mmol/L (98-107) 107 mmol/L (98-107) Carbon Dioxide Level 27 mmol/L (21-32) 25 mmol/L (21-32) Anion Gap 10 (6-14) 11 (6-14) Blood Urea Nitrogen 17 mg/dL (8-26) 14 mg/dL (8-26) Creatinine 0.9 mg/dL (0.7-1.3) 0.8 mg/dL (0.7-1.3) Estimated GFR (Cockcroft-Gault) 87.3 100.0 BUN/Creatinine Ratio 19 (6-20) Glucose Level 113 mg/dL (70-99) 92 mg/dL (70-99) Calcium Level 8.8 mg/dL (8.5-10.1) 8.9 mg/dL (8.5-10.1) Total Bilirubin 0.6 mg/dL (0.2-1.0) Aspartate Amino Transf (AST/SGOT) 19 U/L (15-37) Alanine Aminotransferase (ALT/SGPT) 31 U/L (16-63) Alkaline Phosphatase 110 U/L (46-116) Total Protein 6.7 g/dL (6.4-8.2) Albumin 3.0 g/dL (3.4-5.0) Albumin/Globulin Ratio 0.8 (1.0-1.7) Urine Opiates Screen Neg (NEG) Urine Methadone Screen Neg (NEG) Urine Barbiturates Neg (NEG) Urine Phencyclidine Screen Neg (NEG) Urine Amphetamine/Methamphetamine Pos (NEG) Urine Benzodiazepines Screen Neg (NEG) Urine Cocaine Screen Neg (NEG) Urine Cannabinoids Screen Neg (NEG) Urine Ethyl Alcohol Neg (NEG) Comments CXR IMPRESSION: Minimal left lateral basilar atelectasis suggested in the interval. Tracheal tube in place. Impression . Acute hypoxic respiratory failure Acute pulmonary edema versus atypical pneumonia COPD with acute exacerbation Leukocytosis COVID-19 negative Polysubstance abuse Plan . Did well yesterday on trial extubated Transfer out of the ICU Patient instructed on the importance of discontinue tobacco use Continue IV steroids Follow cardiology recommendations for cardiac work-up Antibiotics per ID DVT/GI prophylaxis ANDER CASTRO MD Mar 18, 2020 08:31
[2020-03-18 08:40] VITALS: BP 163/86
[2020-03-18] MEDS: DEXAMETHASONE SOD PHOS 4 MG/ML VIAL IVP SCH (08:40)
[2020-03-18] MEDS: FAMOTIDINE 20 MG/2 ML VIAL IVP SCH (08:40)
[2020-03-18] MEDS: VANCOMYCIN 1.5 GM in IV NORMAL SALINE 500ML BAG 500 ML IV SCH (08:44)
[2020-03-18] MEDS ORDERED: amLODIPine BESYLATE 10 MG TABLET PO SCH (09:00)
[2020-03-18] MEDS ORDERED: DEXA4TAB PO (09:56)
[2020-03-18] MEDS ORDERED: OXYC-325 PO (09:56)
[2020-03-18] MEDS ORDERED: AMOX1TAB61 PO (09:56)
--- NOTE | 2020-03-18 10:00 | PDOC ---
Infectious Disease Note Subjective: Subjective pt feels better Ambulating in the aden Denies fever, nausea, vomiting, worsening shortness of breath, diarrhea, abdominal pain, rash Otherwise as above Vital Signs: Vital Signs Vital Signs Date Time Temp Pulse Resp B/P (MAP) Pulse Ox O2 Delivery O2 Flow Rate FiO2 03/18/20 08:40 79 163/86 03/18/20 07:00 97.7 14 96 Room Air 2.0 97.7 Physical Exam: PHYSICAL EXAM GENERAL: Alert awake male in no acute distress HEENT: Both pupils are round and reacting. NECK: Supple, no JVP, no lymphadenopathy. LUNGS: Clear. HEART: S1, S2 regular. ABDOMEN: Soft, nontender, no organomegaly. EXTREMITIES: No edema or cyanosis. SKIN: Unremarkable. NEUROLOGIC: Alert oriented x3 grossly nonfocal Medications: Inpatient Meds: Current Medications Medications (Trade) Dose Ordered Sig/Mehdi Start Time Stop Time Status Last Admin Dose Admin Amlodipine Besylate (Norvasc) 10 mg DAILY 03/18/20 09:00 03/18/20 08:40 10 MG Dexamethasone Sodium Phosphate (Decadron) 6 mg DAILY 03/16/20 09:30 03/18/20 08:40 6 MG Dexmedetomidine HCl 400 mcg/ Sodium Chloride 100 ml @ 0 mls/hr CONT PRN 03/16/20 12:00 Enoxaparin Sodium (Lovenox 40mg Syringe) 40 mg Q24H 03/15/20 19:00 03/17/20 22:15 40 MG Famotidine (Pepcid Vial) 20 mg BID 03/16/20 21:00 03/18/20 08:40 20 MG Fentanyl Citrate 30 ml @ 0 mls/hr CONT PRN 03/15/20 10:45 03/16/20 14:03 2.5 MLS/HR Midazolam HCl 100 ml @ 0 mls/hr CONT PRN 03/15/20 10:45 Oxycodone/ Acetaminophen (Percocet 5/325) 1 tab PRN Q4HRS PRN 03/16/20 19:45 03/17/20 22:16 1 TAB Piperacillin Sod/ Tazobactam Sod (Zosyn Per Pharmacy) 1 each PRN DAILY PRN 03/15/20 18:30 Piperacillin Sod/ Tazobactam Sod 3.375 gm/Sodium Chloride 50 ml @ 100 mls/hr Q6HRS 03/16/20 01:00 03/18/20 05:01 100 MLS/HR Propofol 100 ml @ 0 mls/hr CONT PRN 03/15/20 10:45 03/16/20 05:08 26.1 MLS/HR Sodium Chloride 500 ml @ 500 mls/hr 1X PRN PRN 03/16/20 11:53 Vancomycin HCl (Vanco Per Pharmacy) 1 each PRN DAILY PRN 03/15/20 18:30 03/17/20 00:23 1 EACH Vancomycin HCl (Vancomycin Trough Level) 1 each 1X ONCE 03/18/20 21:30 03/18/20 21:31 Vancomycin HCl 1.25 gm/Sodium Chloride 250 ml @ 167 mls/hr Q12H 03/15/20 22:00 03/17/20 01:00 DC 03/16/20 21:43 167 MLS/HR Vancomycin HCl 1.5 gm/Sodium Chloride 500 ml @ 250 mls/hr Q12H 03/17/20 10:00 03/18/20 08:44 250 MLS/HR Vancomycin HCl 2 gm/Sodium Chloride 500 ml @ 250 mls/hr 1X ONCE 03/15/20 20:00 03/15/20 21:59 Cancel Labs: Lab Laboratory Tests Test 03/17/20 16:50 03/18/20 04:00 Urine Opiates Screen Neg (NEG) Urine Methadone Screen Neg (NEG) Urine Barbiturates Neg (NEG) Urine Phencyclidine Screen Neg (NEG) Urine Amphetamine/Methamphetamine Pos (NEG) Urine Benzodiazepines Screen Neg (NEG) Urine Cocaine Screen Neg (NEG) Urine Cannabinoids Screen Neg (NEG) Urine Ethyl Alcohol Neg (NEG) White Blood Count 11.2 x10^3/uL (4.0-11.0) Red Blood Count 4.51 x10^6/uL (4.30-5.70) Hemoglobin 13.0 g/dL (13.0-17.5) Hematocrit 39.5 % (39.0-53.0) Mean Corpuscular Volume 88 fL (79-100) Mean Corpuscular Hemoglobin 29 pg (25-35) Mean Corpuscular Hemoglobin Concent 33 g/dL (31-37) Red Cell Distribution Width 13.9 % (11.5-14.5) Platelet Count 280 x10^3/uL (140-400) Sodium Level 143 mmol/L (136-145) Potassium Level 4.1 mmol/L (3.5-5.1) Chloride Level 107 mmol/L (98-107) Carbon Dioxide Level 25 mmol/L (21-32) Anion Gap 11 (6-14) Blood Urea Nitrogen 14 mg/dL (8-26) Creatinine 0.8 mg/dL (0.7-1.3) Estimated GFR (Cockcroft-Gault) 100.0 Glucose Level 92 mg/dL (70-99) Calcium Level 8.9 mg/dL (8.5-10.1) Objective: Assessment: 1. Hypoxic respiratory failure. Improved 2. Chronic obstructive pulmonary disease. 3. Leukocytosis. 4. History of substance abuse. Plan: Plan of Care DC Zosyn and IV vancomycin Augmentin Continue supportive care ALEJA ARELLANO MD Mar 18, 2020 09:59
[2020-03-18] MEDS ORDERED: AMOXICILLIN/K CLAV 875/125MG TABLET. PO SCH (21:00)
== END 2020-03-18 11:57 | disposition home or self-care (01) | DRG 208 ==
LOC: 1 WEST ICU 10:31 → 2 SOUTH 03-17 16:48
PROVIDERS: ADMIT Internal Medicine; ATTEND Internal Medicine
PROC: 5A1945Z Respiratory Ventilation, 24-96 Consecutive Hours (ICD-10-PCS; principal; 2020-03-15)
PROC: 0BH17EZ Insertion of Endotracheal Airway into Trachea, Via Natural or Artificial Opening (ICD-10-PCS; 2020-03-15)
DX: J96.21 Acute and chronic respiratory failure with hypoxia (principal); J18.9 Pneumonia, unspecified organism; J44.1 Chronic obstructive pulmonary disease with (acute) exacerbation; J44.0 Chronic obstructive pulmonary disease with (acute) lower respiratory infection; F14.10 Cocaine abuse, uncomplicated; F15.10 Other stimulant abuse, uncomplicated; F17.200 Nicotine dependence, unspecified, uncomplicated; M54.5 Low back pain; G89.29 Other chronic pain; J96.22 Acute and chronic respiratory failure with hypercapnia; Z88.8 Allergy status to other drugs, medicaments and biological substances
CPT/HCPCS: 36415; 36600; 71045; 80048; 80053; 80202; 80307; 82565; 82805; 85027; 85379; 86140; 94002; 94003; 94618; 99285; J1100; J1650; J2543; J2704; J3010; J3370; J3490; J7040; J7050; 97116-GP; 97535-GO; G0378; J7030